=== PATIENT | female | born 1960 | race Caucasian/White ===

== ENCOUNTER 2019-03-22 15:58 | Emergency (ER) | payer SELFPAY ==
[~2019-03-22] VITALS: Ht 160 cm; Wt 79.4 kg
[2019-03-22 16:04] VITALS: BP 150/71; Ht 160 cm; Wt 79.4 kg
== END 2019-03-22 17:17 | disposition home or self-care (01) ==
LOC: ED 15:58
DX: S93.601A Unspecified sprain of right foot, initial encounter (principal); S80.02XA Contusion of left knee, initial encounter; W01.0XXA Fall on same level from slipping, tripping and stumbling without subsequent striking against object, initial encounter; Y93.89 Activity, other specified; Y92.89 Other specified places as the place of occurrence of the external cause; Y99.8 Other external cause status; I10 Essential (primary) hypertension; Z90.89 Acquired absence of other organs; Z90.721 Acquired absence of ovaries, unilateral